=== PATIENT | male | born 1950 | race Caucasian/White ===

== ENCOUNTER 2017-10-04 21:11 | Emergency (ER) | payer MEDICARE, OTHER ==
[2017-10-04] MEDS ORDERED: Dexamethasone 10 MG/ML VIAL ONE (22:10)
== END 2017-10-04 22:36 | disposition home or self-care (01) ==
LOC: SCSER 21:11
DX: S80.862A Insect bite (nonvenomous), left lower leg, initial encounter (principal); S80.861A Insect bite (nonvenomous), right lower leg, initial encounter; S30.861A Insect bite (nonvenomous) of abdominal wall, initial encounter; S20.469A Insect bite (nonvenomous) of unspecified back wall of thorax, initial encounter; W57.XXXA Bitten or stung by nonvenomous insect and other nonvenomous arthropods, initial encounter
CPT/HCPCS: 96372; J1100

== ENCOUNTER 2017-10-10 13:52 | Emergency (ER) | payer MEDICARE, OTHER ==
[2017-10-10] MEDS ORDERED: predniSONE 10 MG TAB ONE (14:24)
[2017-10-10] MEDS ORDERED: predniSONE 20 MG TAB ONE (14:24)
== END 2017-10-10 14:27 | disposition home or self-care (01) ==
LOC: SCSER 13:52
DX: L23.7 Allergic contact dermatitis due to plants, except food (principal)
CPT/HCPCS: 99282; J7506; J7512

== ENCOUNTER 2018-08-19 09:13 | Day surgery (SDC) | payer MEDICARE, OTHER ==
[2018-08-19] MEDS ORDERED: Fentanyl 100 MCG/2 ML VIAL ONE (11:27)
[2018-08-19] MEDS ORDERED: Lidocaine 1% (PF) 30 ML VIAL ONE (12:04)
--- NOTE | 2018-08-19 13:40 | OP ---
DATE OF PROCEDURE: 08/19/2018 PREOPERATIVE DIAGNOSIS: Left side carpal tunnel. POSTOPERATIVE DIAGNOSIS: Left side carpal tunnel. PROCEDURES PERFORMED: 1. Left open carpal tunnel release. 2. Placement of short-arm volar splint, left upper extremity. CAREER TECHNICAL EDUCATION INSTRUCTOR: None. BLOOD LOSS: Minimal. COMPLICATIONS: None. CONDITION: He did go to recovery in stable condition. ANESTHESIA: He did have a general anesthetic. INDICATIONS: This is a 68-year-old male comes in complaining of numbness and tingling in the hand as well as weakness. The patient was found to have moderate to severe carpal tunnel syndrome on EMG/NCV and was found on clinical exam to have significant atrophy in his thenar musculature. FINDINGS: Overall, the nerve appeared to be intact. However, there was one small area on the nerve along the thumb side of the nerve, which did appear that it may have been injured previously with some tissue, which was more white in appearance as if there was some scar tissue in this region. Remaining portion of the nerve was intact. DESCRIPTION OF PROCEDURE: After all appropriate consent forms were explained and signed, the patient was taken back to the operating room and at this time was given IV sedation. A well-padded tourniquet was placed on the left arm and the arm was then prepped and draped in the standard surgical fashion. The incision was then drawn out and infiltrated with plain lidocaine. Limb was exsanguinated and tourniquet taken up to 250 mmHg. At this time, using Loupe magnification, a 15 blade was used to incise down through skin. Bipolar cautery was used to coagulate any brisk venous bleeding. We then placed a small hemostat to protect the underlying median nerve and transected the transverse carpal ligament using multiple 15 blades as well as scissors. Once this was done, a small finger was inserted to palpate for any remaining bands. At this time, a moist Ray-Trudy sponge was placed into the wound. Tourniquet was let down and pressure was held. Bipolar cautery used to coagulate any brisk venous bleeding. The wound was then irrigated with saline solution and we then evaluated the nerve. The nerve was found to be significantly injected, the nerve was intact, there were no masses noted, and the underlying flexor tendons were in good condition. At this time, we irrigated and dried the wound. We then placed multiple nylon stitches to close the incision. A bulky sterile hand dressing and a small volar splint were then placed. The patient was then awakened and taken to recovery in stable condition. All counts were correct at the end of the case. The patient received preoperative IV antibiotics. Job ID: [id number]
== END 2018-08-19 13:35 | disposition home or self-care (01) ==
LOC: SDC 09:13
PROVIDERS: ATTEND Orthopaedic Surgery
PROC: 01N50ZZ Release Median Nerve, Open Approach (ICD-10-PCS; principal; 2018-08-19)
DX: G56.02 Carpal tunnel syndrome, left upper limb (principal); M19.012 Primary osteoarthritis, left shoulder; Z79.899 Other long term (current) drug therapy
CPT/HCPCS: J2001; J3010

== ENCOUNTER 2019-07-16 10:05 | Outpatient (CLI) | payer MEDICARE, OTHER ==
[2019-07-16 11:46] LABS: #Basophils 0.1 thou/uL (0.0-0.2); #Eosinphils 0.5 thou/uL (0.0-0.7); #Lymphocytes 1.4 thou/uL (1.20-3.40); #Monocytes 0.7 thou/uL (0.11-0.59); #Neutrophils 3.9 thou/uL (1.40-6.50); %Basophils 0.9 % (0.0-1.0); %Lymphocytes 22.2 % (21.0-51.0); %Monocytes 10.1 % (0.0-10.0); %Neutrophils 59.8 % (42.0-75.0); Hemoglobin 15.8 g/dL (14.0-18.0); Mean Corpuscular HGB CONC 33.6 g/dL (32.0-36.0); Mean Corpuscular Hemoglobin 30.1 pg (27.0-31.0); Mean Corpuscular Volume 89.7 fL (78.0-98.0); Mean Platelet Volume 8.2 fL (7.4-10.4); Platelet Count 165 thou/uL (130-400); RBC Distribution Width 13.4 % (11.5-14.5); Red Blood Cell (RBC) Count 5.26 mill/uL (4.70-6.10); White Blood Cell (WBC) Count 6.4 thou/uL (4.8-10.8)
[2019-07-16 11:55] LABS: Bacteria/HPF None Seen HPF (None Seen); Bilirubin Negative (Negative); Blood, Urine Trace (Negative); Clarity Clear (Clear); Glucose, Urine (Dipstick) Normal (Negative); Leukocyte Negative Leu/uL (Negative); Mucous/LPF Rare LPF (<2+); Nitrite Negative (Negative); Protein, Urine (Dipstick) Negative (Neg-Trace); Squamous Epithelial None Seen HPF (0-3); Urobilinogen Normal mg/dL (Less than 2); WBC/HPF 0-3 HPF (0-3)
--- NOTE | 2019-07-16 12:37 | EKG ---
Test Reason : Blood Pressure : / mmHG Vent. Rate : 060 BPM Atrial Rate : 060 BPM P-R Int : 180 ms QRS Dur : 078 ms QT Int : 422 ms P-R-T Axes : 039 048 054 degrees QTc Int : 422 ms Normal sinus rhythm Normal ECG No previous ECGs available Confirmed by DR. Naz JESUS ([id number]) on 07/16/2019 12:37:16 PM Referred By: ONIEL Confirmed By:DR. Naz JESUS
== END 2019-07-16 10:06 | disposition home or self-care (01) ==
LOC: LABBT 10:05
PROVIDERS: ATTEND Orthopaedic Surgery Hand Surgery
DX: Z01.818 Encounter for other preprocedural examination (principal); G56.02 Carpal tunnel syndrome, left upper limb
CPT/HCPCS: 81001; 85025; 93005; 93010

== ENCOUNTER 2019-07-22 08:48 | Day surgery (SDC) | payer MEDICARE, OTHER ==
[2019-07-16 10:11] VITALS: BMI 29.9
[2019-07-22] MEDS ORDERED: Lidocaine 1% PF 5 ML VIAL ONE (10:11)
[2019-07-22] MEDS ORDERED: Dexamethasone 20 MG/5 ML VIAL ONE (10:11)
[2019-07-22] MEDS ORDERED: Ketorolac Tromethamine 30 MG/ML VIAL ONE (10:11)
[2019-07-22] MEDS ORDERED: Ondansetron PF 4 MG/2 ML Vial ONE (10:11)
[2019-07-22] MEDS ORDERED: PROPOFOL 200 MG/20 ML VIAL ONE (10:11)
[2019-07-22] MEDS ORDERED: Fentanyl 100 MCG/2 ML VIAL ONE ×2 (12:39→15:20)
[2019-07-22] MEDS ORDERED: Midazolam HCl 2 mg/2 ml Vial ONE (12:39)
[2019-07-22] MEDS ORDERED: Bacitracin Zinc Ointment 30 gm TUBE ONE (12:43)
[2019-07-22] MEDS ORDERED: Bupivacaine PF 0.5% 30 ML VIAL ONE (12:43)
[2019-07-22] MEDS ORDERED: Betamet Acet/Betamet Na Ph 30 MG/5 ML VIAL ONE ×2 (14:08→14:58)
--- NOTE | 2019-07-23 10:27 | OP ---
DATE OF PROCEDURE: 07/22/2019 PREOPERATIVE DIAGNOSIS: Median nerve compression, carpal tunnel level 2. POSTOPERATIVE DIAGNOSES: 1. Lipoma 2 x 1 cm, ulnar aspect of the carpal tunnel near the volar wrist flexion crease. 2. Extremely tight re-formation of a previous release transcarpal ligament with scarring almost 3 cm proximal the forearm even to the level of the takeoff of the primary cutaneous central branch to the thenar skin. 3. Tenosynovitis, very intense, flexor digitorum profundus and flexor digitorum superficialis to all digits from the canal, but none over the FPL. PROCEDURES PERFORMED: 1. Radical flexor tenosynovectomy, flexor digitorum profundus. 2. Radical flexor digitorum superficialis tenosynovectomy. 3. Lipoma excision, 2.1 cm benign mass. 4. Median nerve neuroplasty, wrist. 5. Median nerve neuroplasty, forearm. 6. Application of 4 x 1 cm Integra nerve sleeve. SPECIMENS SENT: 1. Lipoma. 2. Flexor tenosynovectomy sample. TOURNIQUET TIME: 42 minutes. ESTIMATED BLOOD LOSS: Less than 10 mL. FINDINGS: 1. Again, left median nerve compression 3 cm long area with complete hourglass compression with almost 40% less diameter of the nerve what had been seen prior to the compression level with marked amount of erythema, redness, so much stippling that had coalesced to one red area nerve. 2. Lipoma, 2 x 1 cm, ulnar aspect of the carpal canal near the volar wrist flexion crease. 3. Primary motor branch was somewhat compressed by the almost separate sleeve of fibroconnective tissue. DESCRIPTION OF PROCEDURE: After successful general endotracheal anesthesia, the limb was prepped and draped. He had a previous incision that we extended 1 cm distal to the palm from his previous carpal tunnel release and then he had an accidental incision more radially over the level where the palmar cutaneous branch had to go and then we included this and brought it back proximal to this to the midline in a zigzag fashion to ensure we saw the entire median nerve distal to the flexor digitorum superficialis and flexor digitorum profundus covering of the nerve in the mid distal third forearm. We exsanguinated the limb, inflated tourniquet to 250 mmHg pressure, injected all these areas with a total of 30 mL of 0.5% Marcaine. 5 minutes later, we made the incision. He had very thick scarring beginning 1 cm proximal to the distal end of the incision all the way to 2 cm proximal to the volar wrist flexion crease. We had to go very slow to identify the median nerve and identified it proximal to the volar wrist flexion crease almost to the level of the digitorum profundus and superficialis covering of the nerve. From here, even the palmar fascia was tight, which we released and then once we got to 2 cm proximal to the volar flexion crease, the intense scar began. We identified the palmar cutaneous branch and protected it. We then began Ney blade dissection of the nerve because now we could see the nerve in the known released distal forearm as we approached the wrist portion of the transverse carpal ligament. It was thick, scarred and once we released it, we began to see individual stippling and coalesced dewey erythema and there was a 3 cm section of the nerve that was completely, 40% the diameter of the area prior to this with stippling and erythema. We then had released the entire scar. We resected the 2 mm area of scar on the ulnar aspect to keep it from recurring and having secondary tightness of the transverse carpal ligament via this transverse carpal ligament dissection over 2 cm area. We then dissected the nerve free, saw that the FPL was without tenosynovitis, but there was marked tenosynovial swelling of the flexor digitorum profundus and superficialis. Also, at the ulnar aspect of the volar wrist flexion crease, there was a lipoma, which when you brought the skin back to close, would have covered the nerve and compressed it and this lipoma lied right in the center of the greatest amount of erythema and narrowing. For this reason, we resected it out with blunt dissection using the right angle clamp and lifted out. The capsule was violated, but the size was a 2 x 1 cm and it was sent as specimen. We then followed the primary motor branch because of his atrophy and we saw it had a separate fibrosis tunnel that was constricted so under magnification with loupes, as we did for most of the procedure, we identified this, freed it without damage. We then protected the nerve, dissected underneath it, pulled the tendons ulnarly and did a radical flexor tenosynovectomy, first at the flexor digitorum superficialis tendons, then the flexor digitorum profundus. We then decided that there was still enough fat to give him some protection, but in order to help protect the nerve, we took a nerve sleeve, Integra type that was 1 cm in diameter, placed it under the nerve between the level of the takeoff of the palmar cutaneous branch and the motor branch and cut it down to 3.5 cm in length. We then secured it with interrupted 6-0 Prolene suture without undue traction and without violating the nerve sheath. We then placed Celestone along the entire length of the nerve, divided the 10 mL equally. We sent the specimen to the lab. We released the tourniquet, obtained hemostasis. We then closed the wound with interrupted 4-0 nylon in a mattress pattern without undue tension and there was excellent padding still left to cover the nerve in the center of the palm. The digits were pink, hemostasis was excellent, the patient had a bulky dressing applied that was soft and the patient left the operating room without evidence of anesthetic or operative complication. Job ID: [id number]
--- NOTE | 2019-07-28 06:06 | PQF ---
[facility] POST DISCHARGE CLINICAL DOCUMENTATION IMPROVEMENT CLARIFICATION FORM l Todays Date: 07/25/19 l Patients Name KATIE WHITEHEAD l l Admit Date 07/22/19 l Disch Date 07/22/19 Reservation Clerk Name Raji Bryson Email: [email or web address] Cell: [phone] To be completed by Reservation Clerk: Present Clinical Indicators - Signs / Symptoms Results and Location in Medical Record [ ] Documentation of: [ ] [ ] Documentation of: [ ] [ ] Documentation of: [ ] [ ] Documentation of: [ ] [ ] Risks [ ] [ ] [ ] Treatment [ ] Left forearm lipoma Query for size of excised margins of forearm lipoma [ ] [ ] To be completed by Physician: WAQAR CASTILLO The documentation in this patients record requires clarification to ensure coding compliance and accuracy. Check the appropriate box and include in your discharge summary. [ ] [ ] [ ] [ ] Please check this box if this does not apply to this patient [ ] Unable to determine [ ] Other diagnosis: Review the following information and exercise your independent professional judgment in responding to the clarification. Based upon the clinical findings, risk factors, and treatment, please clarify if you are treating one of the above probable or suspected diagnoses. Physician Signature: Date Time MTDD
== END 2019-07-22 16:43 | disposition home or self-care (01) ==
LOC: SDC 08:48
PROVIDERS: ATTEND Orthopaedic Surgery Hand Surgery
PROC: 0LB80ZZ Excision of Left Hand Tendon, Open Approach (ICD-10-PCS; principal; 2019-07-22)
PROC: 0LB80ZZ Excision of Left Hand Tendon, Open Approach (ICD-10-PCS; 2019-07-22)
PROC: 01U50JZ Supplement Median Nerve with Synthetic Substitute, Open Approach (ICD-10-PCS; 2019-07-22)
PROC: 01N50ZZ Release Median Nerve, Open Approach (ICD-10-PCS; 2019-07-22)
DX: G56.02 Carpal tunnel syndrome, left upper limb (principal); M65.832 Other synovitis and tenosynovitis, left forearm; D17.22 Benign lipomatous neoplasm of skin and subcutaneous tissue of left arm; M62.542 Muscle wasting and atrophy, not elsewhere classified, left hand; M19.042 Primary osteoarthritis, left hand; Z96.653 Presence of artificial knee joint, bilateral; Z98.890 Other specified postprocedural states
CPT/HCPCS: 88304; 88305; J0690; J0702; J1100; J1885; J2001; J2250; J2405; J2704; J3010; J3490; S0020

== ENCOUNTER 2019-10-08 11:24 | Outpatient (CLI) | payer MEDICARE, OTHER ==
--- NOTE | 2019-10-08 15:21 | MRI ---
MRI OF THE CERVICAL SPINE WITHOUT CONTRAST: 10/08/19 HISTORY: Pain. COMPARISON: MRI 05/12/19. FINDINGS: Cerebellar tonsils terminate at the foramen magnum. No cord signal abnormality. There is relatively high grade degenerative disease of the C1-2 articulation on the right. No marrow infiltrative process. No cervical adenopathy. Levels are as follows: C2-3: There is mild uncinate process hypertrophy. No significant neural foraminal or spinal canal na rrowing. C3-4: Mild disc desiccation and height loss. Central annular fissure. Mild uncinate process hypertrop hy. Mild hypertrophic facet arthrosis, greater on the right. There is moderate right and mild left n eural foraminal narrowing. C4-5: Moderate degenerative disc space height loss. There are Modic type I end plate changes. Circumf erential disc osteophyte complex. Moderate right and mild left hypertrophic facet arthrosis. There is effacement of the ventral CSF space. Small canal measures 7-8 mm. Mild ligamentum flavum hypertrophy . Moderate left and mild right neural foraminal narrowing. C5-6: Mild degenerative disc space height loss. Circumferential disc osteophyte complex greatest in t he left lateral recess and subforaminal zone. Mild left and moderate right hypertrophic facet arthro sis. Mild ligamentum flavum hypertrophy. The spinal canal measures approximately 9 mm. moderate left and minimal right neural foraminal narrowing. C6-7: Type II end plate Modic changes. Moderate degenerative disc space height loss. Moderate degene rative disc osteophyte complex, circumferential. Mild bilateral neural foraminal narrowing. Mild effa cement of ventral CSF space in the spinal canal measuring 9 mm. C7-T1: Minimal degenerative disc space height loss. No neural foraminal or spinal canal narrowing. Mo derate to severe right and moderate left hypertrophic facet arthrosis. IMPRESSION: Moderate spondylosis as described. POS: HOME
== END 2019-10-08 11:25 | disposition home or self-care (01) ==
LOC: MRI 11:24
PROVIDERS: ATTEND Orthopaedic Surgery Hand Surgery
DX: M47.812 Spondylosis without myelopathy or radiculopathy, cervical region (principal); M47.813 Spondylosis without myelopathy or radiculopathy, cervicothoracic region
CPT/HCPCS: 72141